=== PATIENT | female | born 1975 | race Caucasian/White ===

== ENCOUNTER 2016-04-01 13:15 | Inpatient (IN) | payer OTHER ==
[2016-04-01 17:11] LABS: Anisocytosis Slight; Basophils % (A) 0 %; CH 18.4; CHCM 26.5; Eosinophils % (A) 1 %; HCT 23.8 % (34.0-46.0); HDW 3.57; Hypochromasia Marked; Luc # (Auto) 0.12; Luc % (Auto) 3; Lymphocytes # (A) 1.1 k/uL (1.0-4.8); Lymphocytes % (A) 28 %; MCH 18.6 pg (25.0-35.0); MCV 69.8 fL (80.0-100.0); Mean Platelet Volume 7.5; Microcytosis Marked; Monocytes # (A) 0.3 k/uL (0-1.0); Monocytes % (A) 7 %; Neutrophils # (A) 2.5 k/uL (1.3-7.7); Neutrophils % (A) 62 %; Poikilocytosis Slight; RBC 3.41 m/uL (3.80-5.40); RDW 17.4 % (11.5-15.5); WBC 4.1 k/uL (3.8-10.6); WBC (Perox) 4.17
[2016-04-01 17:12] LABS: MCHC 26.7 g/dL (31.0-37.0)
[2016-04-01 17:14] LABS: HGB 6.3 gm/dL (11.4-16.0)
[2016-04-01] MEDS: metFORMIN 500 MG TAB PO SCH (17:18)
[2016-04-01] MEDS: SODIUM CHLORIDE 0.9% 1,000 ML IV SCH (17:21)
[2016-04-01 17:56] LABS: ALT 35 U/L (9-52); AST 29 U/L (14-36); Alkaline Phosphatase 54 U/L (38-126); Anion Gap 13 mmol/L; Blood Urea Nitrogen 15 mg/dL (7-17); Calcium 8.5 mg/dL (8.4-10.2); Carbon Dioxide 23 mmol/L (22-30); Chloride 103 mmol/L (98-107); Glucose 219 mg/dL (74-99); Non-African American GFR(MDRD) >60 (>60 ml/min/1.73 sqM); Potassium 3.4 mmol/L (3.5-5.1); Sodium 139 mmol/L (137-145); Total Bilirubin 0.4 mg/dL (0.2-1.3); Total Protein 6.2 g/dL (6.3-8.2)
[2016-04-01 17:58] LABS: Manual Review Performed
[2016-04-01 17:59] LABS: Ovalocytes Present; Polychromasia Present
--- NOTE | 2016-04-01 19:38 | P.OBCN ---
History of Present Illness Consult date: 04/01/16 Reason for consult: menorrhagia Chief complaint: Chronic vaginal bleeding. History of present illness: This patient is a pleasant 41-year-old 5 para 3 female who is transported from [facility] for evaluation of vaginal bleeding and anemia. Apparently patient was not feeling well at work and checked her hemoglobin there at the hospital and was found to be 6.6. Patient was subsequently transferred here per Dr. Sood for further evaluation. Patient has seen Dr. Holley in the past, however her last visit was in 2004. She states that she's had some times daily vaginal bleeding since July of last year. Patient apparently has not seen a utility arborist or general practitioner in over 5 years. She does have a remote history of uterine fibroids and is status post myomectomy. As stated above, patient works at [facility] and apparently felt so fatigued this morning that she decided to get things checked out. Hemoglobin there was low and she was subsequently transferred here. Patient states that she is only going through approximately 3-4 tampons today. She denies passing large clots or flooding episodes today. This bleeding apparently has been going on for an extended period of time. Hemoglobin here 6.3. Review of Systems Constitutional: Reports fatigue, Reports weakness Genitourinary: Reports as per HPI, Reports menorrhagia Menstruation: Reports as per HPI, Reports currently menstrual, Reports period heavy Past Medical History Past Medical History: Diabetes Mellitus Additional Past Medical History / Comment(s): Patient has newly diagnosed diabetes based on a hemoglobin A1c today of 9.9. History of Any Multi-Drug Resistant Organisms: None Reported Additional Past Surgical History / Comment(s): D&C and myomectomy. Past Anesthesia/Blood Transfusion Reactions: No Reported Reaction Smoking Status: Former smoker Past Alcohol Use History: None Reported Past Drug Use History: None Reported Medications and Allergies Home Medications Medication Instructions Recorded Confirmed Type Promethaz-Cod 6.25-10 mg/5 ml 5 ml PO Q4HR PRN 04/01/16 04/01/16 History [Phenergan with Codeine] predniSONE 20 mg PO DAILY 04/01/16 04/01/16 History Allergies Allergy/AdvReac Type Severity Reaction Status Date / Time No Known Allergies Allergy Verified 04/01/16 17:13 Exam - Vital Signs Vital signs: Vital Signs Temp Pulse Pulse Resp BP BP Pulse Ox 04/01/16 19:03 98.4 F 91 20 123/68 97 04/01/16 18:54 98.4 F 91 20 123/68 97 04/01/16 18:22 98.0 F 85 18 122/68 100 04/01/16 18:14 100.0 F H 92 19 112/63 Intake and Output 04/01/16 04/01/16 04/01/16 06:59 14:59 22:59 Intake Total 0 Balance 0 Intake: Blood Product 0 Rc As-1 Unit 0 [id number] Other: Weight 104.326 kg Patient Weight 04/02/16 06:59 Weight 104.326 kg No pelvic exam is done at this time. Patient is not currently having significant bleeding. Results Result Diagrams: 04/01/16 16:31 04/01/16 16:31 Abnormal Lab Results - Last 24 Hours (Table) 04/01/16 04/01/16 04/01/16 Range/Units 16:31 16:31 16:31 RBC 3.41 L (3.80-5.40) m/uL Hgb 6.3 L* (11.4-16.0) gm/dL Hct 23.8 L (34.0-46.0) % MCV 69.8 L (80.0-100.0) fL MCH 18.6 L (25.0-35.0) pg MCHC 26.7 L (31.0-37.0) g/dL RDW 17.4 H (11.5-15.5) % Potassium 3.4 L (3.5-5.1) mmol/L Glucose 219 H (74-99) mg/dL Total Protein 6.2 L (6.3-8.2) g/dL Crossmatch See Detail Assessment and Plan (1) Menorrhagia Narrative/Plan: This is a pleasant 41-year-old 5 para 3 female with long-standing menorrhagia and suspected chronic anemia. Patient is quite anemic with a hemoglobin of 6.3, however it is apparent this has been a long-standing issue due to her not seeking care. Patient is being transfused 1 unit of blood per Dr. Sood and will then have a repeat CBC tomorrow morning. My recommendations at this time are to check a transvaginal ultrasound to look for recurrence of her fibroids and to look at the endometrial thickness. Patient will also need an outpatient endometrial sampling. Patient has seen Dr. Holley in the past and did contact our office last week and wanted to see her again therefore I will discuss with Dr. Holley to coordinate a outpatient visit sometime next week. Currently I'm going to place her on iron and also on Provera twice a day until sampling can be done. She is not having any acute bleeding at this time, her vital signs are stable and she is not having any evidence of hemodynamic compromise, and therefore surgical intervention by D&C is not indicated at this time. I did discuss with her and her and family that in the long-term she will need some form of intervention most likely an endometrial ablation and/or hysterectomy if her ultrasound and biopsy are normal. Patient may be discharged home tomorrow morning if her hemoglobin remained stable and she does not have any acute vaginal bleeding. Status: Chronic (2) Chronic anemia Status: Acute
[2016-04-01] MEDS: IRON AG/C/B12/CA/SUC.ACID/STOM 1 EACH TAB PO SCH (20:29)
--- NOTE | 2016-04-01 20:42 | US ---
EXAMINATION TYPE: US transvaginal DATE OF EXAM: 04/01/2016 8:21 PM COMPARISON: NONE CLINICAL HISTORY: Vaginal bleeding/anemia. TECHNIQUE: Transvaginal Date of LMP: Patient states she has been bleeding since July 2015 EXAM MEASUREMENTS: Uterus: 8.9 x 5.1 x 6.0 cm Endometrial Stripe: 1.3 cm Right Ovary: 5.5 x 3.4 x 4.4 cm Left Ovary: 2.2 x 1.4 x 1.3 cm TECHNOLOGIST IMPRESSION: 1. Uterus: Heterogeneous and course echotexture. Multiple hypoechoic areas visualized, largest measu ring 2.1 x 1.5 x 1.2 cm, possible fibroids. Probable nabothian cyst visualized in the cervix measurin g 1.4 x 1.5 x 1.7cm 2. Endometrium: wnl 3. Right Ovary: Cyst visualized measuring 4.7 x 3.0 x 3.4 cm 4. Left Ovary: wnl 5. Bilateral Adnexa: wnl 6. Posterior cul-de-sac: wnl IMPRESSION: Large right simple ovarian cyst. No solid adnexal mass. Large cervical cyst. No endometri al thickening seen.
[2016-04-02] MEDS: SODIUM CHLORIDE 0.9% 1,000 ML IV SCH ×2 (06:09→11:26)
[2016-04-02 06:16] LABS: Anisocytosis Slight; Basophils % (A) 1 %; CH 18.8; CHCM 27.1; Eosinophils # (A) 0.1 k/uL (0-0.7); Eosinophils % (A) 1 %; HCT 24.9 % (34.0-46.0); HDW 3.85; Hypochromasia Marked; Luc # (Auto) 0.11; Luc % (Auto) 3; Lymphocytes # (A) 1.3 k/uL (1.0-4.8); Lymphocytes % (A) 29 %; MCH 19.3 pg (25.0-35.0); MCV 69.7 fL (80.0-100.0); Mean Platelet Volume 7.3; Microcytosis Marked; Monocytes # (A) 0.2 k/uL (0-1.0); Monocytes % (A) 5 %; Neutrophils # (A) 2.7 k/uL (1.3-7.7); Neutrophils % (A) 61 %; Poikilocytosis Slight; RBC 3.58 m/uL (3.80-5.40); RDW 17.3 % (11.5-15.5); WBC 4.5 k/uL (3.8-10.6); WBC (Perox) 4.55
[2016-04-02 06:17] LABS: HGB 6.9 gm/dL (11.4-16.0); MCHC 27.7 g/dL (31.0-37.0)
--- NOTE | 2016-04-02 06:31 | P.PN ---
Progress Note - Text Patient's repeat CBC this morning shows her hemoglobin be 6.9. This is consistent with receiving the packed red blood cells and the fact that her bleeding is minimal at this time. I discussed management plan at this point with the patient, and at this point I feel from a DIRECTOR TELEVISION NEWS standpoint she will be stable for discharge home later this morning. Ultrasound was normal with the exception of a small fibroid. Patient is to follow-up in our office next week with Dr. Holley or myself for an endometrial biopsy and discuss further treatment options. I asked her take Provera 10 mg daily and also her iron once or twice a day. Patient is understanding this plan. Further management per her admitting physician Dr. Sood.
[2016-04-02] MEDS: metFORMIN 500 MG TAB PO SCH ×3 (08:11→18:10)
[2016-04-02 10:05] LABS: Glucose,Whole Blood 299 mg/dL (75-99)
[2016-04-02] MEDS ORDERED: POTASSIUM CHLORIDE ER 20 MEQ TAB.ER PO STA (10:21)
--- NOTE | 2016-04-02 11:07 | HP ---
DATE OF ADMISSION: 04/01/2016 PRESENTING COMPLAINT: Weak, tired. HISTORY OF PRESENTING COMPLAINT: A very pleasant 41-year-old patient who was transferred here from [facility]. Patient has no known chronic medical problems. She had been having abnormal recurrent vaginal bleeding for the last 7 to 9 months. Patient 2 to 3 days ago started off cough, low-grade fever, run down, tired, though she had flu-like symptoms. 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 Feeling weak, tired, even trouble getting short of breath. Patient does get up at night and go to the bathroom. Patient went down to the local ER. Patient's hemoglobin was found to be 6.6. Sugars running up in 200s. Note that patient was on steroids. Patient hence was transferred down here. Upon coming in, I did order a unit of blood. It did bring up the hemoglobin to 6.9, but patient still feeling weak and tired. Patient otherwise had been in good health. Patient has been trying to lose some weight on purpose. Patient has 3 children. REVIEW OF SYSTEMS: CONSTITUTIONAL: Weak, tired. HEENT: Some dizziness. RESPIRATORY: Cough, congestion, GASTROINTESTINAL: The patient at baseline has about 3 bowel movements a day since her gallbladder was taken out. PSYCHIATRY: None. NEUROLOGICAL: None. MUSCULOSKELETAL: None. PAST MEDICAL HISTORY: None. PAST SURGICAL HISTORY: Cholecystectomy, D&C and myomectomy. Psych history of claustrophobia. SOCIAL HISTORY: . 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 Started smoking at the age of 19, smoked off and on 5 to 6 cigarettes a day, quitting on March 17. Family history of hypertension, kidney stones. HOME MEDICATIONS: 1. Prednisone 20 mg a day. 2. Phenergan with codeine 5 mL q.4 p.r.n. 3. Provera 10 mg p.o. daily. 4. Chromagen LF 1 tablet at noon. ALLERGIES: None. ON EXAMINATION: VITAL SIGNS ON PRESENTATION: Temperature 100, pulse 92, respirations 19, blood pressure 102/63, pulse ox 100% on room air. GENERAL APPEARANCE: Well built, BMI of 33, sitting up, not in distress. EYES: Pupils equal. Conjunctivae pale. HEENT: External appearance of nose and ears normal. Oral cavity some filling in the teeth. NECK: JVD not raised. Mass not palpable. RESPIRATORY: Effort normal. LUNGS: Slightly decreased breath sounds. CARDIOVASCULAR: First and second sounds normal. No edema. ABDOMEN: Soft, nontender. Liver and spleen not palpable. LYMPHATIC: No lymph node palpable in neck or axillae. PSYCHIATRY: Alert and oriented x3. Mood and affect normal. NEUROLOGICAL: Pupils equal. Cranial nerves grossly intact. Power and sensation grossly intact. INVESTIGATIONS: White count 4.1, hemoglobin 6.3, MCV is low. Potassium 3.4. Glucose 219. ASSESSMENT: 1. Acute severe symptomatic anemia from severe persistent menorrhagia. 2. Hypokalemia. 3. Probably new onset diabetes mellitus type 2. Patient is also overweight and had been smoking up until recently. 4. Obesity, body mass index of 33. PLAN: Patient was given 1 unit of blood. Repeat hemoglobin was 6.9. Will repeat a unit of blood. Will also send off influenza A and B swab. Give 40 of potassium. Will check patient's lipid panel. Follow Accu-Cheks. Patient will be put on metformin, do diabetic teaching. PHYSICIAN PRACTICE MANAGER was consulted. Care was discussed in detail with the patient. Questions were answered. The patient is to establish a family doctor.
[2016-04-02] MEDS: LORATADINE-PSEUDOEPH 5-120 MG 1 EACH TAB.ER.12H PO SCH ×2 (11:24→21:08)
[2016-04-02] MEDS: IRON AG/C/B12/CA/SUC.ACID/STOM 1 EACH TAB PO SCH (11:24)
[2016-04-02 12:05] LABS: Glucose,Whole Blood 243 mg/dL (75-99)
[2016-04-02] MEDS: INSULIN LISPRO (humaLOG) 300 UNIT/3 ML VIAL SQ SCH ×2 (12:18→18:10)
[2016-04-02 17:48] LABS: Glucose,Whole Blood 218 mg/dL (75-99)
[2016-04-02 21:10] LABS: Glucose,Whole Blood 222 mg/dL (75-99)
[2016-04-03 06:32] LABS: Anisocytosis Slight; Basophils % (A) 1 %; CHCM 27.6; Eosinophils # (A) 0.1 k/uL (0-0.7); Eosinophils % (A) 2 %; HCT 28.7 % (34.0-46.0); HDW 4.37; HGB 8.1 gm/dL (11.4-16.0); Hypochromasia Marked; Luc # (Auto) 0.18; Luc % (Auto) 4; Lymphocytes # (A) 1.7 k/uL (1.0-4.8); Lymphocytes % (A) 36 %; MCH 20.5 pg (25.0-35.0); MCHC 28.3 g/dL (31.0-37.0); MCV 72.5 fL (80.0-100.0); Mean Platelet Volume 6.7; Microcytosis Moderate; Monocytes # (A) 0.3 k/uL (0-1.0); Monocytes % (A) 6 %; Neutrophils # (A) 2.5 k/uL (1.3-7.7); Neutrophils % (A) 52 %; Poikilocytosis Moderate; RBC 3.96 m/uL (3.80-5.40); RDW 18.8 % (11.5-15.5); WBC 4.8 k/uL (3.8-10.6); WBC (Perox) 5.14
[2016-04-03 06:53] LABS: Anion Gap 10 mmol/L; Blood Urea Nitrogen 7 mg/dL (7-17); Calcium 8.2 mg/dL (8.4-10.2); Carbon Dioxide 22 mmol/L (22-30); Chloride 107 mmol/L (98-107); Cholesterol 85 mg/dL (<200); Glucose 239 mg/dL (74-99); HDL Cholesterol 28 mg/dL (40-60); Non-African American GFR(MDRD) >60 (>60 ml/min/1.73 sqM); Potassium 3.7 mmol/L (3.5-5.1); Sodium 139 mmol/L (137-145); Triglycerides 228 mg/dL (<150)
[2016-04-03 07:13] LABS: Glucose,Whole Blood 243 mg/dL (75-99)
[2016-04-03] MEDS: INSULIN LISPRO (humaLOG) 300 UNIT/3 ML VIAL SQ SCH ×2 (07:34→12:33)
[2016-04-03] MEDS: metFORMIN 500 MG TAB PO SCH (07:40)
[2016-04-03 09:10] VITALS: RESP 20; TEMP 97.6
[2016-04-03] MEDS: LORATADINE-PSEUDOEPH 5-120 MG 1 EACH TAB.ER.12H PO SCH (09:49)
[2016-04-03 10:00] VITALS: BMI 33.0
[2016-04-03 12:26] LABS: Glucose,Whole Blood 161 mg/dL (75-99)
[2016-04-03] MEDS: IRON AG/C/B12/CA/SUC.ACID/STOM 1 EACH TAB PO SCH (12:31)
[2016-04-03 16:16] VITALS: BP 138/83; PULSE 77
--- NOTE | 2016-04-07 12:53 | DS ---
DATE OF ADMISSION: 04/01/2016 DATE OF DISCHARGE: 04/03/2016 FINAL DIAGNOSES: 1. Acute severe symptomatic anemia from severe persistent menorrhagia requiring blood transfusion. 2. Hypokalemia. 3. Diabetes mellitus type 2, new diagnosis. 4. Obesity, body mass index of 33. 5. Acute viral bronchitis and sinusitis. HOSPITAL COURSE: This patient was transferred from [facility], feeling weak and tired. Hemoglobin was 6.3 was transfused 2 units of blood. Patient was symptomatic, did much better. Patient is a new diabetic now. Patient's HbA1c from the other hospital was quoted at 9.2. Patient LDL is 11, triglycerides 228. Day of discharge, patient was counseled about weight loss, smoke cessation and diabetic medications were started. Patient was seen by Dr. Ford and will follow up in the office for the same. At the time of discharge hemoglobin is 8.1. DISCHARGE MEDICATIONS: 1. Chromagen LF 1 tablet p.o. at noon. 2. Provera 10 mg p.o. daily. 3. Lipitor 20 mg p.o. daily. 4. Prinivil 5 mg p.o. q.h.s. 5. Renal Protective. 6. Claritin-D one tablet q.12, 6 tablets. 7. Glucophage 1000 mg p.o. b.i.d. DIET: Carbohydrate consistent. Patient will be establishing a new PCP in the area. Patient to maintain an Accu-Cheks Log, follow by Dr. Holley on 04/03/2016 at 2:25 p.m. DC planning more than 35 minutes including discussion.
== END 2016-04-03 14:41 | disposition home or self-care (01) | DRG 812 ==
LOC: 6PED 15:59
PROVIDERS: ADMIT Hospitalist; ATTEND Hospitalist
PROC: 30233N1 Transfusion of Nonautologous Red Blood Cells into Peripheral Vein, Percutaneous Approach (ICD-10-PCS; principal; 2016-04-01)
DX: D62 Acute posthemorrhagic anemia (principal); E11.9 Type 2 diabetes mellitus without complications; E66.9 Obesity, unspecified; E87.6 Hypokalemia; F40.240 Claustrophobia; N92.0 Excessive and frequent menstruation with regular cycle; Z68.33 Body mass index [BMI] 33.0-33.9, adult; Z87.891 Personal history of nicotine dependence; Z79.52 Long term (current) use of systemic steroids; Z79.899 Other long term (current) drug therapy; Z82.49 Family history of ischemic heart disease and other diseases of the circulatory system
CPT/HCPCS: 76830; 80048; 80053; 80061; 84443; 85025; 86850; 86900; 86901; 86920; 87502; 93976

== ENCOUNTER 2016-04-14 06:28 | Day surgery (SDC) | payer OTHER ==
[2016-04-08 16:08] VITALS: BMI 33.0
--- NOTE | 2016-04-13 21:44 | P.HPOB ---
History of Present Illness H&P Date: 04/13/16 Chief Complaint: Menorrhagia, anemia, family planning This is a 41-year-old female 5 para 3 who presents for dilation and curettage with hysteroscopy and NovaSure endometrial ablation along with laparoscopic tubal ligation via fulguration. She was recently admitted to [facility] for severe anemia. She stated she had been bleeding almost daily since July 2015. At the time she presented to the emergency room, her hemoglobin was 6.6. She did receive 2 units of blood while in the hospital and increased her hemoglobin up to 8.1. She would like definitive surgical treatment to control her bleeding problems and would like permanent sterilization. She is currently been using condoms for control. Pelvic ultrasound revealed a uterus measuring 8.9 x 5.1 x 6.0 cm with endometrial stripe of 1.3 cm. Her right ovary did have a simple cyst measuring 4.7 x 3.0 x 3.4 cm. There were possible small fibroids noted largest of which was 2 cm. Obstetrical history: . History of 3 vaginal deliveries and 2 miscarriages. Gynecologic history: No history of sexual transmitted diseases. She currently uses condoms for control. 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 Review of Systems Constitutional: Reports fatigue Respiratory: Reports dyspnea Gastrointestinal: Reports diarrhea Genitourinary: Reports menorrhagia Menstruation: Reports menses 8 or > days, Reports menses variable Musculoskeletal: Reports muscle cramps Psychiatric: Denies anxiety, Denies depression Past Medical History Past Medical History: Diabetes Mellitus Additional Past Medical History / Comment(s): Abnormal vaginal bleeding, anemia History of Any Multi-Drug Resistant Organisms: None Reported Past Surgical History: Cholecystectomy Additional Past Surgical History / Comment(s): D&C and myomectomy. Past Anesthesia/Blood Transfusion Reactions: Motion Sickness Additional Past Anesthesia/Blood Transfusion Reaction / Comment(s): clausterphobia Past Psychological History: No Psychological Hx Reported Additional Psychological History / Comment(s): pt is independant, , works at [employer] records Smoking Status: Former smoker Past Alcohol Use History: None Reported Additional Past Alcohol Use History / Comment(s): started smoking at age 19, smoked off and on 5-6 cig per day,quit 03-07-16 Past Drug Use History: None Reported - Past Family History Father Family Medical History: Hypertension Additional Family Medical History / Comment(s): kidney stones Mother Family Medical History: Diabetes Mellitus Medications and Allergies Allergies Allergy/AdvReac Type Severity Reaction Status Date / Time No Known Allergies Allergy Verified 04/08/16 15:51 Exam Osteopathic Statement: *. No significant issues noted on an osteopathic structural exam other than those noted in the History and Physical/Consult. HEENT: Within normal limits Heart: Regular rate and rhythm Lungs: Clear to auscultation bilaterally Abdomen: Soft, nontender Pelvic exam: Uterus is slightly enlarged, nontender, with no adnexal masses palpated. Scant bloody discharge was noted. Extremities: Negative Homans Assessment and Plan (1) Family planning Status: Acute (2) Chronic anemia Status: Acute (3) Menorrhagia Status: Chronic Plan: Proceed with laparoscopic bilateral tubal ligation via fulguration and dilation and curettage with hysteroscopy and NovaSure endometrial ablation. I have discussed the risks, benefits, and alternative therapies for the above- mentioned procedure and for both sedation/anesthesia as well as necessary blood products administration, if indicated, as they pertain to this patient. The patient has indicated her understanding and acceptance of the risks and procedures discussed.
[~2016-04-14 06:28] MED LIST: DEXAMETHASONE SOD PHOSPHATE 10 MG/ML 1 ML VIAL IV ONE; HYDROmorphone 1 MG/ML 1 ML SYRINGE IVP PRN; LACTATED RINGERS 1,000 ML IV SCH; MIDAZOLAM 2 MG/2 ML VIAL IV PRN; ONDANSETRON 4 MG/2 ML VIAL IVP ONE; Pre Op ABX Message 1 EACH MISC MISCELLANE ONE; SCOPOLAMINE 1.5MG/72HR PATCH TRANSDERM ONE
[2016-04-14] MEDS ORDERED: LIDOCAINE 1% 20 ML VIAL (10MG/ML) FOR IV START SQ ONE (06:40)
[2016-04-14 07:07] LABS: Glucose,Whole Blood 201 mg/dL (75-99)
[2016-04-14] MEDS ORDERED: KETOROLAC 30 MG/ML 1 ML VIAL IVP STA (07:15)
[2016-04-14] MEDS ORDERED: LIDOCAINE 1% INJ 10MG/ML (20 ML MDV) ONE (07:29)
[2016-04-14] MEDS ORDERED: SUCCINYLCHOLINE CHLORIDE VIAL 200 MG/10 ML VIAL IV ONE (07:29)
[2016-04-14] MEDS ORDERED: fentaNYL (PF) 50 MCG/ML 2 ML AMP ONE (07:29)
[2016-04-14] MEDS ORDERED: PROPOFOL 10 MG/ML 20 ML VIAL IV ONE (07:29)
[2016-04-14] MEDS ORDERED: MIDAZOLAM 2 MG/2 ML VIAL ONE (07:29)
[2016-04-14] MEDS ORDERED: BUPIVACAINE (PF) 0.25% 30 ML VIAL SQ ONE ×3 (08:04→08:16)
--- NOTE | 2016-04-14 08:29 | P.OP ---
Date of Procedure: 04/14/16 Preoperative Diagnosis: 1. Menorrhagia with irregular cycle. 2. Anemia. 3. Family planning. Postoperative Diagnosis: Same plus right ovarian cyst Procedure(s) Performed: Hysteroscopy with dilation and curettage Attempted and failed endometrial ablation with NovaSure Laparoscopic bilateral tubal ligation via fulguration Anesthesia: TIFFANIE Surgeon: Eli Holley Estimated Blood Loss (ml): 15 Pathology: other (Endometrial curettings) Condition: stable Disposition: same day Indications for Procedure: This is a 41-year-old female 5 para 3 who presents for dilation and curettage with hysteroscopy and NovaSure endometrial ablation along with laparoscopic tubal ligation via fulguration. She was recently admitted to [facility] for severe anemia. She stated she had been bleeding almost daily since July 2015. At the time she presented to the emergency room, her hemoglobin was 6.6. She did receive 2 units of blood while in the hospital and increased her hemoglobin up to 8.1. She would like definitive surgical treatment to control her bleeding problems and would like permanent sterilization. She is currently been using condoms for control. Pelvic ultrasound revealed a uterus measuring 8.9 x 5.1 x 6.0 cm with endometrial stripe of 1.3 cm. Her right ovary did have a simple cyst measuring 4.7 x 3.0 x 3.4 cm. There were possible small fibroids noted largest of which was 2 cm. Operative Findings: Uterus is anteverted and sounded to 9 cm area of cervix is sounded to 3 cm. Upon hysteroscopy very difficult visualization was noted. She did have a significant amount of endometrial tissue and polypoid type changes. Neither tubal ostia was visualized upon hysteroscopy. A very large amount of endometrial tissue is obtained. Attempt at NovaSure ablation was tried 3 times. All 3 times the cavity assessment did not pass. At this time the procedure was abandoned. Upon laparoscopy, uterus appeared normal contour. No evidence of any perforation was noted. Both tubes appeared normal. The left ovary appeared normal. The right ovary did have a fairly large approximate 5 cm double-appearing cyst. This was drained of a straw clear-colored fluid. Description of Procedure: The patient is taken to the operating room. She is placed in the dorsal lithotomy position after general anesthesia was given. She is prepped and draped in the normal sterile fashion. Bladder is drained with a catheter and then removed. Pelvic exam is performed under anesthesia. Uterus is found to be anteverted with no adnexal masses. She is placed in slight Trendelenburg position. A right angle retractor is used to visualize the cervix. The anterior lip of the cervix is grasped with a single-tooth tenaculum. Cervix is sounded to 3 cm. Uterus is sounded to 9 cm. Cervix is gently dilated with Morris dilators until a hysteroscope could be passed. Hysteroscopy is performed using normal saline. The above noted findings are noted. Next a polyp forceps is introduced. A large amount of tissue was obtained. Next medium-sized size sharp curette was placed. A large amount of endometrial curettings were obtained. Next NovaSure array was inserted into the endometrial cavity. Length was set at 6 cm and width was determined to be 4.6 cm. cavity assessment was attempted and failed 3 times. Each time the array was removed and replaced. After the third failed attempts, the procedure was abandoned. Next a kroner uterine manipulator was inserted through the cervix and the balloon was inflated. Single-tooth tenaculum was removed and speculum was removed. Next attention was turned to the abdomen. Gloves were changed. The infraumbilical fold was grasped in transverse fashion with 2 Allis clamps. A small transverse incision was made with a scalpel through the previous scar. A hemostat was used to carry the incision down to the underlying layer of fascia. A towel clip was placed above the umbilicus for retraction. A 10 mm disposable bladeless trocar was then inserted into the peritoneal cavity under direct visualization. Once inside, pneumoperitoneum was achieved with CO2 gas. The insert was removed and the camera was placed. Intraperitoneal placement was confirmed. No bleeding was noted. Next the patient was placed in Trendelenburg position. A small stab incision was made suprapubically and a 5 mm disposable bladeless trocar was inserted into the peritoneal cavity under direct visualization. Once inside pelvic contents were inspected. Next a bipolar Kleppinger instrument was placed through the inferior trocar and the midportion of each tube was brought away from other structures and completely fulgurated on approximate 2-3 cm segment of each tube. Excellent hemostasis was noted. A picture was taken. There was noted be a fairly large right ovarian cyst that appeared simple. An aspirating needle was placed and a stab wound into the right ovarian cyst was carried out. Suctioning with a syringe removed approximately 15 mL of straw yellow-colored fluid. No bleeding was noted. The cyst was flattened. Pneumoperitoneum was released after the inferior trocar was removed under direct visualization. The upper trocar was then removed. The fascial incision was closed with 0 Vicryl suture in interrupted [id number] stitch. The skin incisions were then closed with 4- 0 Vicryl suture in a subcuticular fashion. The skin incisions were injected with quarter percent Marcaine. Approximately 9 mL were used. Next the kroner uterine manipulator was removed. Minimal bleeding was noted. All sponge and needle counts are correct. The patient is then taken to recovery room in stable condition.
[2016-04-14] MEDS ORDERED: LACTATED RINGERS 1,000 ML IV ONE (08:32)
[2016-04-14 08:44] VITALS: TEMP 96.8
[2016-04-14 09:30] VITALS: RESP 18
[2016-04-14 09:37] LABS: Glucose,Whole Blood 213 mg/dL (75-99)
[2016-04-14 10:00] VITALS: BP 135/86; PULSE 79
== END 2016-04-14 10:30 | disposition home or self-care (01) ==
LOC: OR 06:28
PROVIDERS: ATTEND Obstetrics & Gynecology
DX: N92.0 Excessive and frequent menstruation with regular cycle (principal); Z30.2 Encounter for sterilization; N83.291 Other ovarian cyst, right side; E11.9 Type 2 diabetes mellitus without complications; Z79.84 Long term (current) use of oral hypoglycemic drugs; I10 Essential (primary) hypertension; E78.5 Hyperlipidemia, unspecified; D64.9 Anemia, unspecified; Z87.891 Personal history of nicotine dependence; Z79.899 Other long term (current) drug therapy
CPT/HCPCS: 81025; 88305; 58558; 58670; 49322; J2250; J0330; J1100; J2405; J2001; J3010; J1885; J2704

== ENCOUNTER 2016-04-24 06:21 | Inpatient (IN) | payer OTHER ==
[2016-04-22 16:05] VITALS: BMI 33.0
--- NOTE | 2016-04-23 19:10 | P.HPOB ---
History of Present Illness H&P Date: 04/23/16 Chief Complaint: Menorrhagia with irregular cycle, blood loss anemia, failed ablation This is a 41-year-old female 5 para 3 who presents for total vaginal hysterectomy with possible total abdominal hysterectomy due to menorrhagia with irregular cycle. She has been bleeding almost constantly since July 2015. She was seen in the ER in early April and her hemoglobin was found to be 6.6. She was transfused 2 units of blood at [facility] and her discharge hemoglobin was 8.1. She underwent a dilation and curettage with hysteroscopy and attempted NovaSure endometrial ablation on 04/14/2016. The array would not pass the cavity assessment and therefore the NovaSure array could not be fired. She is continuing to bleed heavily since her surgery and has increased her Provera to 2 times a day in addition to continuing her iron supplementation. She does have dizziness and fatigue. She denies any pelvic pain or cramping. She has requested attempt at vaginal hysterectomy if at all possible but understands that she may need an abdominal hysterectomy if it is unable to fit through the vaginal area. She was diagnosed with grade 1-2 uterine prolapse on examination the office. Obstetrical history: . History of 3 vaginal deliveries. History of 2 miscarriages. She states she has deliver 9 pound infants in the past. Gynecologic history: No history of sexual transmitted diseases. She does have a history of a dilation and curettage with hysteroscopy and removal of uterine fibroids in April 2000. Social history: She is . 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 Review of Systems Constitutional: Reports fatigue Ears, nose, mouth and throat: Denies headache, Denies sore throat Cardiovascular: Reports dyspnea on exertion, Denies chest pain Gastrointestinal: Reports diarrhea Genitourinary: Reports menorrhagia Menstruation: Reports menses 8 or > days, Reports menses variable, Reports period heavy Musculoskeletal: Reports muscle cramps Integumentary: Denies pruritus, Denies rash Neurological: Denies numbness Psychiatric: Denies anxiety, Denies depression Endocrine: Reports fatigue, Denies weight change Past Medical History Past Medical History: Diabetes Mellitus Additional Past Medical History / Comment(s): Abnormal vaginal bleeding, anemia- had blood transfusion History of Any Multi-Drug Resistant Organisms: None Reported Past Surgical History: Cholecystectomy, Tubal Ligation, Uterine Ablation Additional Past Surgical History / Comment(s): attempted uterine ablation D&C and myomectomy. Past Anesthesia/Blood Transfusion Reactions: Motion Sickness Additional Past Anesthesia/Blood Transfusion Reaction / Comment(s): claustrophobia Past Psychological History: No Psychological Hx Reported Additional Psychological History / Comment(s): . Smoking Status: Former smoker Past Alcohol Use History: None Reported Additional Past Alcohol Use History / Comment(s): started smoking at age 19, smoked off and on 5-6 cig per day,quit 03-07-16 Past Drug Use History: None Reported - Past Family History Father Family Medical History: Hypertension Additional Family Medical History / Comment(s): . Mother Family Medical History: Diabetes Mellitus Medications and Allergies Home Medications Medication Instructions Recorded Confirmed Type Medroxyprogesterone Acetate 20 mg PO DAILY 04/22/16 04/22/16 History [Provera] Allergies Allergy/AdvReac Type Severity Reaction Status Date / Time No Known Allergies Allergy Verified 04/22/16 15:59 Exam Osteopathic Statement: *. No significant issues noted on an osteopathic structural exam other than those noted in the History and Physical/Consult. HEENT: Within normal limits Heart: Regular rate and rhythm Lungs: Clear to auscultation bilaterally Abdomen: Soft, nontender Pelvic exam: Uterus is slightly enlarged, anteverted, with grade 1-2 uterine prolapse. No adnexal masses are palpated. There is grade 1 cystocele and grade 2 rectocele noted. Extremities: Negative Homans Assessment and Plan (1) Blood loss anemia Status: Acute (2) Uterine prolapse Status: Acute (3) Menorrhagia Status: Chronic Plan: Proceed with total vaginal hysterectomy with possible total abdominal hysterectomy. I have discussed the risks, benefits, and alternative therapies for the above- mentioned procedure and for both sedation/anesthesia as well as necessary blood products administration, if indicated, as they pertain to this patient. The patient has indicated her understanding and acceptance of the risks and procedures discussed.
[~2016-04-24 06:21] MED LIST changes: -HYDROmorphone 1 MG/ML 1 ML SYRINGE IVP PRN; -ONDANSETRON 4 MG/2 ML VIAL IVP ONE; -Pre Op ABX Message 1 EACH MISC MISCELLANE ONE; +ceFAZolin 2 GM in SODIUM CHLORIDE 0.9% 100 ML IVPB ONE
[2016-04-24] MEDS ORDERED: LIDOCAINE 1% 20 ML VIAL (10MG/ML) FOR IV START INTRADERMA ONE (07:14)
[2016-04-24] MEDS: ONDANSETRON 4 MG/2 ML VIAL IVP ONE ×2 (07:15→09:32)
[2016-04-24 07:16] LABS: Glucose,Whole Blood 245 mg/dL (75-99)
[2016-04-24] MEDS ORDERED: GLYCOPYRROLATE 0.2 MG/ML 2 ML VIAL ONE (07:42)
[2016-04-24] MEDS ORDERED: HYDROmorphone (PF) 1 MG/ML ONE (07:42)
[2016-04-24] MEDS ORDERED: PHENYLEPHRINE-0.9% NACL SYG 1 MG/10 ML SYRINGE ONE (07:42)
[2016-04-24] MEDS ORDERED: fentaNYL (PF) 50 MCG/ML 2 ML AMP ONE (07:42)
[2016-04-24] MEDS ORDERED: SUCCINYLCHOLINE CHLORIDE 100 MG/5 ML SYR IV ONE (07:42)
[2016-04-24] MEDS ORDERED: MIDAZOLAM 2 MG/2 ML VIAL ONE (07:42)
[2016-04-24] MEDS ORDERED: ROCURONIUM BROMIDE 10 MG/ML 10 ML VIAL IV ONE (07:42)
[2016-04-24] MEDS ORDERED: PROPOFOL 10 MG/ML 20 ML VIAL IV ONE (07:42)
[2016-04-24] MEDS ORDERED: LIDOCAINE 1% INJ 10MG/ML (20 ML MDV) ONE (07:42)
[2016-04-24] MEDS ORDERED: NEOSTIGMINE 1 MG/ML 10 ML VIAL ONE (07:42)
[2016-04-24] MEDS ORDERED: ePHEDrine 50 MG/ML 1 ML AMP ONE (07:42)
[2016-04-24] MEDS ORDERED: EPINEPHrine 1 MG/ML 1 ML AMP IM ONE (08:00)
[2016-04-24] MEDS ORDERED: BACITRACIN 500 UNIT/GM OINT 28.4 GM TUBE TOPICAL ONE (08:05)
--- NOTE | 2016-04-24 09:16 | P.OP ---
Date of Procedure: 04/24/16 Preoperative Diagnosis: 1. Menorrhagia with irregular cycle. 2. Chronic blood loss anemia. 3. Failed endometrial ablation. 4. Uterine prolapse Postoperative Diagnosis: Same Procedure(s) Performed: Total vaginal hysterectomy Anesthesia: TIFFANIE Surgeon: Eli Holley Material Crew Supervisor #1: Lexi Alexandra Estimated Blood Loss (ml): 50 Pathology: other (Uterus with cervix) Condition: stable Disposition: floor Indications for Procedure: This is a 41-year-old female 5 para 3 who presents for total vaginal hysterectomy with possible total abdominal hysterectomy due to menorrhagia with irregular cycle. She has been bleeding almost constantly since July 2015. She was seen in the ER in early April and her hemoglobin was found to be 6.6. She was transfused 2 units of blood at [facility] and her discharge hemoglobin was 8.1. She underwent a dilation and curettage with hysteroscopy and attempted NovaSure endometrial ablation on 04/14/2016. The array would not pass the cavity assessment and therefore the NovaSure array could not be fired. She is continuing to bleed heavily since her surgery and has increased her Provera to 2 times a day in addition to continuing her iron supplementation. She does have dizziness and fatigue. She denies any pelvic pain or cramping. She has requested attempt at vaginal hysterectomy if at all possible but understands that she may need an abdominal hysterectomy if it is unable to fit through the vaginal area. She was diagnosed with grade 1-2 uterine prolapse on examination the office. Operative Findings: Uterus is bulky with possible posterior fibroids. Right ovary did have a simple -appearing cyst that was drained with straw-colored fluid. Both tubes and ovaries are visualized and appeared normal. Grade 1-2 uterine prolapse was noted. Grade 1-2 cystocele was noted and grade 2 rectocele was noted. Description of Procedure: The patient is taken the operating room where she is placed in the dorsal lithotomy position. She is prepped and draped in the normal sterile fashion. Next a weighted speculum was placed in the patient's vagina and a right angle retractor was used to visualize the cervix. The anterior lip of the cervix is grasped with a single-tooth tenaculum. Next the cervix was circumferentially injected with one amp of epinephrine to 150 mL of normal saline. Next the cervix was circumscribed with a scalpel. The vaginal mucosa was pushed away from the cervix with a sponge. Next the uterosacral ligaments are clamped on either side with a Clara clamp, cut with Donovan scissors, and then sutured with 0 Vicryl suture in a Clara transfixion stitch and then held on either side with a straight hemostat. Next the posterior peritoneal reflection was identified and entered sharply with Donovan scissors. The edges of the vaginal mucosa was then tagged with 0 Vicryl suture and held with a curved hemostat for identification. Next a longbilled weighted speculum was placed through the posterior peritoneal reflection. Next the cardinal ligaments were clamped on either side with Clara clamps, cut with Donovan scissors, and then sutured with 0 Vicryl suture in Clara transfixion stitches and cut. Next the vesicouterine peritoneum reflection is identified and entered sharply with Metzenbaum scissors. A right angle bladder retractor is then used to retract the bladder. The uterine arteries are clamped on either side with Clara clamps, cut with Donovan scissors, and then sutured with 0 Vicryl suture in Clara transfixion stitches. The round ligament is also clamped on either side with a Clara clamp , cut with Donovan scissors, and sutured with 0 Vicryl suture in Clara transfixion stitches. At this point the uterus did feel too bulky to actually visualize the pedicles clearly. Therefore I started to morcellate on the posterior side of the uterus with the scalpel. At this point the uterus did deliver posteriorly and the ligaments were visible. Next the uterine ovarian ligament and tube were clamped on the left side with a Clara clamp, cut with Donovan scissors, and then sutured with 0 Vicryl suture in a [id number] stitch , flashed, and then free tied with another suture of 0 Vicryl suture. This was held with a straight John clamp. The right side was not flashed or held but was hemostatic. The uterus is removed from the field. The right ovary was visible and did appear to have a simple-appearing cyst. This was drained with Bovie cautery and straw-colored fluid was removed. Excellent hemostasis is noted. Next the peritoneum is closed with 0 Vicryl suture in a pursestring fashion incorporating all the held ligaments. Both tubes are visualized and appeared normal. Next the vaginal cuff is sutured with 0 Vicryl suture in an running locked fashion and a vertical fashion. The uterosacral ligaments were also tied together in the midline prior to completely closing the vaginal cuff. Excellent hemostasis is noted. The Jones catheter is inserted and clear urine is noted. Next the vagina is packed with one-inch iodoform gauze with bacitracin ointment. All sponge and needle counts are correct and the patient is then taken to recovery room in stable condition.
[2016-04-24] MEDS: HYDROmorphone 1 MG/ML 1 ML SYRINGE IVP PRN ×4 (09:32→10:02)
[2016-04-24] MEDS ORDERED: KETOROLAC 30 MG/ML 1 ML VIAL IVP ONE (09:38)
[2016-04-24] MEDS ORDERED: PROMETHAZINE INJ 25 MG/ML 1 ML VIAL IVPB ONE (09:51)
[2016-04-24] MEDS ORDERED: INSULIN LISPRO (humaLOG) 300 UNIT/3 ML VIAL SQ ONE (10:09)
[2016-04-24] MEDS ORDERED: Acetaminophen-Codeine 300-30mg TAB PO PRN ×2 (10:14)
[2016-04-24] MEDS ORDERED: IBUPROFEN 600 MG TAB PO PRN (10:14)
[2016-04-24] MEDS ORDERED: METOCLOPRAMIDE 5 MG/ML 2 ML VIAL IVP PRN (10:14)
[2016-04-24] MEDS ORDERED: ONDANSETRON 4 MG/2 ML VIAL IVP PRN (10:14)
[2016-04-24] MEDS ORDERED: ATORVASTATIN 20 MG TAB PO SCH ×2 (10:14→21:00)
[2016-04-24] MEDS ORDERED: NALOXONE 0.4 MG/ML 1 ML VIAL IV PRN (10:14)
[2016-04-24] MEDS ORDERED: HYDROmorphone PCA 5 MG/25 ML SYRINGE IV PRN (10:14)
[2016-04-24] MEDS ORDERED: diphenhydrAMINE 50 MG/ML 1 ML VIAL IVP PRN (10:14)
[2016-04-24] MEDS ORDERED: SIMETHICONE 80 MG CHEWABLE PO PRN (10:14)
[2016-04-24 10:16] LABS: Glucose,Whole Blood 281 mg/dL (75-99)
[2016-04-24] MEDS: SENNOSIDES-DOCUSATE SODIUM 1 EACH TAB PO SCH ×2 (11:00→22:01)
[2016-04-24 12:32] LABS: Glucose,Whole Blood 266 mg/dL (75-99)
[2016-04-24] MEDS: metFORMIN 500 MG TAB PO SCH ×2 (13:45→21:57)
[2016-04-24] MEDS: INSULIN LISPRO (humaLOG) 300 UNIT/3 ML VIAL SQ SCH ×3 (13:55→21:59)
[2016-04-24] MEDS: LACTATED RINGERS 1,000 ML IV SCH ×2 (14:03→22:07)
[2016-04-24] MEDS: KETOROLAC 30 MG/ML 1 ML VIAL IVP PRN ×2 (15:54→21:56)
[2016-04-24 17:18] LABS: Glucose,Whole Blood 341 mg/dL (75-99)
[2016-04-24 20:04] LABS: Glucose,Whole Blood 340 mg/dL (75-99)
[2016-04-24] MEDS ORDERED: LISINOPRIL 5 MG TAB PO SCH (21:00)
[2016-04-25] MEDS: KETOROLAC 30 MG/ML 1 ML VIAL IVP PRN (05:59)
[2016-04-25 06:07] VITALS: RESP 16
[2016-04-25] MEDS: LACTATED RINGERS 1,000 ML IV SCH (06:26)
[2016-04-25 07:10] LABS: Anisocytosis Moderate; Basophils % (A) 0 %; CH 22.6; CHCM 28.6; Eosinophils % (A) 0 %; HDW 3.32; HGB 7.3 gm/dL (11.4-16.0); Hypochromasia Marked; Luc # (Auto) 0.11; Luc % (Auto) 1; Lymphocytes # (A) 1.3 k/uL (1.0-4.8); Lymphocytes % (A) 14 %; MCH 23.1 pg (25.0-35.0); MCHC 29.1 g/dL (31.0-37.0); Mean Platelet Volume 7.9; Microcytosis Moderate; Monocytes # (A) 0.5 k/uL (0-1.0); Monocytes % (A) 6 %; Neutrophils # (A) 7.3 k/uL (1.3-7.7); Neutrophils % (A) 79 %; RBC 3.16 m/uL (3.80-5.40); RDW 22.7 % (11.5-15.5); WBC 9.2 k/uL (3.8-10.6); WBC (Perox) 9.75
[2016-04-25 07:14] LABS: MCV 79.3 fL (80.0-100.0)
[2016-04-25] MEDS ORDERED: metFORMIN 500 MG TAB PO SCH (07:30)
[2016-04-25] MEDS ORDERED: ACETAMINOPHEN TAB 325 MG TAB PO PRN (07:44)
[2016-04-25 07:45] LABS: Glucose,Whole Blood 219 mg/dL (75-99)
[2016-04-25] MEDS: INSULIN LISPRO (humaLOG) 300 UNIT/3 ML VIAL SQ SCH ×2 (08:24→14:07)
[2016-04-25] MEDS: metFORMIN 500 MG TAB PO SCH (08:25)
[2016-04-25] MEDS: SENNOSIDES-DOCUSATE SODIUM 1 EACH TAB PO SCH (09:48)
[2016-04-25 11:36] VITALS: BP 112/48; PULSE 69; TEMP 97.9
[2016-04-25 12:06] LABS: Glucose,Whole Blood 243 mg/dL (75-99)
--- NOTE | 2016-04-25 12:46 | P.DS ---
Providers Date of admission: 04/24/16 06:21 Expected date of discharge: 04/25/16 Attending physician: Eli Holley Consults: 04/24/16 12:40 Consult Physician Routine Consulting Provider: Manuel Sood Consult Reason/Comments: medical managment, diabetic, post vag hsyt Do you want consulting provider notified?: Yes Primary care physician: Stated None - Discharge Diagnosis(es) (1) Blood loss anemia Current Visit: Yes Status: Acute (2) Uterine prolapse Current Visit: Yes Status: Acute (3) Menorrhagia Current Visit: No Status: Chronic Hospital Course: This is a 41-year-old female who underwent a total vaginal hysterectomy on 04/24. Postoperatively she has done well. Her pain is well-controlled after discontinuing the SIGNAL WORKER pump this morning. She is not taking any further medication at this point. She is having very minimal vaginal bleeding. She has urinated without difficulty. She is passing flatus but no bowel movement yet. Vital signs are stable. Abdomen is soft with positive bowel sounds 4. Peggy-pad shows very scant red brown discharge. Extremities show negative Homans. Impression is status post total vaginal hysterectomy postoperative day #1. Plan is to discharge home later today. She has been seen by medicine who did adjust her diabetes medications. The patient are he has Tylenol 3 at home and therefore does not need a prescription for it. She will be given a prescription for ibuprofen 600 mg every 6 hours as needed for pain. She is advised to continue taking her iron supplementation due to her anemia. She is also encouraged to continue taking stool softeners. She is advised to follow up in the office in 1 week for a postoperative check and to call the office if she has any further questions or concerns prior to her appointment time. Routine postoperative instructions are given. Procedures: Total vaginal hysterectomy on 04/24/2016 Patient Condition at Discharge: Stable Plan - Discharge Summary New Discharge Prescriptions: Ibuprofen [Motrin] 600 mg PO Q6HR PRN #60 tab PRN Reason: Mild Discomfort Discharge Medication List Atorvastatin Calcium [Lipitor] 20 mg PO DAILY #30 tab 04/03/16 [Rx] Lisinopril [Prinivil] 5 mg PO HS #30 tablet 04/03/16 [Rx] Acetaminophen-Codeine 300-30mg [Tylenol w/codeine #3] 1 tab PO Q4H PRN #30 tablet 04/14/16 [Rx] Iron Ag/C/B12/Ca/Suc.acid/Stom [Chromagen LF] 1 tab PO DAILY@1200 04/24/16 [ History] metFORMIN HCL 1,000 mg PO AC-BID 04/24/16 [History] Ibuprofen [Motrin] 600 mg PO Q6HR PRN #60 tab 04/25/16 [Rx] Sennosides-Docusate Sodium [Senokot-S] 2 each PO BID tab 04/25/16 [Rx] Follow up Appointment(s)/Referral(s): Eli Holley DO [Doctor of Osteopathic Medicine] - 1 Week Patient Instructions/Handouts: Hysterectomy (DC) Activity/Diet/Wound Care/Special Instructions: Diet as tolerated. May shower, but no tub baths. No heavy lifting. No intercourse. Discharge Disposition: HOME SELF-CARE
--- NOTE | 2016-04-25 15:47 | CONS ---
DATE OF CONSULTATION: 04/25/2016 REASON FOR CONSULTATION: Medical management requested Dr. Holley. CONSULTATION: This is a very pleasant 41-year-old patient who was here in the earlier part of the month with severe anemia and uterine bleeding. Patient also had anemia, ( ), was transfused blood. Patient was newly diagnosed with diabetes mellitus, type 2, was started on metformin, discharged on 1000 mg twice a day. Patient since then has been running sugars in the 200s and because she was dealing with menorrhagia did not get a chance to see her family doctor. The patient is here now, undergone a total vaginal hysterectomy. Post procedure, pain is controlled. No nausea or vomiting. Tolerated a diet. Her sugars have been running in the 200s at home, like stated above. REVIEW OF SYSTEMS: CONSTITUTIONAL: Weak, tired. HEENT: None. RESPIRATORY: None. CARDIOVASCULAR: None. GASTROINTESTINAL: None. GENITOURINARY: None. MUSCULOSKELETAL: None. DERMATOLOGICAL: None. HEMATOLOGIC: None. LYMPHATICS: None. PSYCHIATRY: None. NEUROLOGICAL: None. GASTROINTESTINAL: The patient has a baseline 3 bowel movements a day. PAST MEDICAL HISTORY: Diabetes mellitus type 2, obesity, menorrhagia. PAST SURGICAL HISTORY: Cholecystectomy, D&C, myomectomy. Psych history of claustrophobia. SOCIAL HISTORY: . 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 The patient stopped smoking in March of this year. Family history of hypertension and kidney stones. ALLERGIES: None. HOME MEDICATIONS: 1. Metformin 1000 mg b.i.d. 2. Senokot-S 2 tablets p.o. b.i.d. 3. Prinivil 5 mg q.h.s. 4. Chromagen LF 1 tablet p.o. daily. 5. Motrin 600 mg q.6 p.r.n. 6. Lipitor 20 mg a day. ALLERGIES: None. On examination, temperature 97.9, pulse 69, respirations 16, blood pressure 112/48, pulse ox 99% on room air. GENERAL APPEARANCE: Well built, BMI of 33, lying in bed, comfortable. EYES: Pupils equal. Conjunctivae pale. HEENT: Oral cavity normal. NECK: JVD not raised. Mass not palpable. RESPIRATORY: Effort normal. Lungs are clear. CARDIOVASCULAR: First and second sounds normal. No edema. ABDOMEN: Soft, nontender. Liver and spleen not palpable. LYMPHATIC: No lymph node palpable in neck or axillae. PSYCHIATRY: Alert and oriented x3. Mood and affect normal. NEUROLOGICAL: Pupils equal. Cranial nerves grossly intact. Power and sensation grossly intact. INVESTIGATIONS: White count 9.2, hemoglobin 7.3, platelets 485. Accu-Cheks 219, 243. ASSESSMENT: 1. Diabetes mellitus, type 2 on oral hypoglycemic, uncontrolled. 2. Microcytic anemia from chronic menorrhagia. 3. Reactive thrombocytosis. 4. Obesity, body mass index of 33. PLAN: Because sugar are ( ), Januvia 100 mg a day will be added. Patient's hemoglobin should creep up slowly now since hysterectomy has been done. Patient to continue taking iron supplements. Other home medications to continue. Patient at this point asymptomatic with anemia, hence, no need for blood transfusion. The patient should keep a close eye on the Accu-Cheks and follow with the family doctor next week. Thank you, Dr. Holley. Additionally, Januvia 100 mg a day is being added.
== END 2016-04-25 14:23 | disposition home or self-care (01) | DRG 743 ==
LOC: 2ORMAIN 06:21 → 6PED 09:05
PROVIDERS: ADMIT Obstetrics & Gynecology; ATTEND Obstetrics & Gynecology
PROC: 0UTC7ZZ Resection of Cervix, Via Natural or Artificial Opening (ICD-10-PCS; 2016-04-24)
PROC: 0UB07ZZ Excision of Right Ovary, Via Natural or Artificial Opening (ICD-10-PCS; 2016-04-24)
PROC: 0UT97ZZ Resection of Uterus, Via Natural or Artificial Opening (ICD-10-PCS; principal; 2016-04-24 07:45)
DX: N92.0 Excessive and frequent menstruation with regular cycle (principal); E11.65 Type 2 diabetes mellitus with hyperglycemia; D50.0 Iron deficiency anemia secondary to blood loss (chronic); D75.89 Other specified diseases of blood and blood-forming organs; N81.4 Uterovaginal prolapse, unspecified; N93.9 Abnormal uterine and vaginal bleeding, unspecified; N83.201 Unspecified ovarian cyst, right side; N92.6 Irregular menstruation, unspecified; N81.6 Rectocele; F40.240 Claustrophobia; R53.1 Weakness; R42 Dizziness and giddiness; Z79.890 Hormone replacement therapy; Z79.84 Long term (current) use of oral hypoglycemic drugs; Z79.1 Long term (current) use of non-steroidal anti-inflammatories (NSAID); Z87.42 Personal history of other diseases of the female genital tract; Z79.899 Other long term (current) drug therapy; Z87.891 Personal history of nicotine dependence; Z83.3 Family history of diabetes mellitus; Z82.49 Family history of ischemic heart disease and other diseases of the circulatory system; Z90.49 Acquired absence of other specified parts of digestive tract; Z98.51 Tubal ligation status
CPT/HCPCS: 81025; 83036; 85025; 88307